=== PATIENT | male | born 1990 | race Caucasian/White ===

== ENCOUNTER 2016-10-01 08:21 | Inpatient (IN) | payer BC, OTHER ==
[~2016-10-01] VITALS: Ht 177.8 cm; Wt 122.5 kg
[2016-10-01] MEDS ORDERED: ACETAMINOPHEN 325 MG TABLET PO PRN (10:30)
[2016-10-01] MEDS ORDERED: DICYCLOMINE HCL 20 MG TABLET PO PRN (10:30)
[2016-10-01] MEDS ORDERED: ONDANSETRON 4 MG/2 ML VIAL IM PRN (10:30)
[2016-10-01] MEDS ORDERED: MIRALAX 17 GM POWD.PACK PO PRN (10:30)
[2016-10-01] MEDS ORDERED: BUPRENORPHINE HCL 2 MG TAB.SUBL SL PRN (10:30)
[2016-10-01] MEDS ORDERED: MAG HYDROX/AL HYDROX/SIMETH 30 ML LIQUID UDC PO PRN (10:30)
[2016-10-01] MEDS ORDERED: diphenhydrAMINE 50 MG CAPSULE PO PRN (10:30)
[2016-10-01] MEDS ORDERED: ONDANSETRON ODT 4 MG TAB.RAPDIS SL PRN (10:30)
[2016-10-01] MEDS ORDERED: MAGNESIUM HYDROXIDE 30 ML LIQUID UDC PO PRN (10:30)
[2016-10-01] MEDS ORDERED: LOPERAMIDE HCL 2 MG CAPSULE PO PRN ×2 (10:30)
[2016-10-01] MEDS ORDERED: HYDROXYZINE PAMOATE 25 MG CAPSULE PO PRN (10:30)
--- NOTE | 2016-10-01 10:30 | NUR ---
Intake assessment Note Pt seen in intake. Pt states that he is being admitted for opiate dependence. Pt VS are: 138/83 HR 104, R 18, T: 99.0, SpO2 100% on RA. Pt is cleared to come to the unit for admission. Pt reports that he has no medical history, no history of seizures, and that he does not take any prescribed medication at home.
[2016-10-01 10:40] VITALS: BP 138/83
--- NOTE | 2016-10-01 10:40 | NUR ---
Admission Note Pt had been admitted for opiate dependence. Pt ambulated on the unit with DISBURSING OFFICER. Pt is a direct admit from home. Pt explained rules/procedures/protocol for the unit. Pt verbalized his understanding. Pt states that he has a PMHx of a cardiac septal defect surgery and rhinoplasty. Denies taking any prescribed medications at home. Pt states that his PCP is Dr Arias. Pt states that this is his first time in detox. Pt skin check completed and noted to have several scabs on his bilateral arms/chest. No open wounds noted. Pt states that he is 5'10'' tall and weighs 270 pounds. Pt VS upon admission are: BP: 138/83, HR 104, T: 99.0, R: 18, SpO2 100% on RA. Pt denies pain at this time. LBM 10/01/16. Pt has a COWS of 22 upon admission, will administer medication upon verification by pharmacy. Pt states that he does not want a pneumococcal vaccine. Consents to HIV testing. Pt states that he uses to following substances: smokes 1 pack of cigarettes a day. Heroin- 1-1.5G via inhalation daily x 1 year, last use 09/30/16- 0.4G Methamphetamine- "1-2 points", states he uses it infrequently for the last 3 months, last use "1 point" on . Roxicodone- 30mg tabs- used 4-6 tabs PO daily for 3 years then switched to heroin a year ago. Pt states that he follows a regular diet at home, has NKA and is placed on full code. Pt has been seen by Dr Villeda, will be starting a subutex taper today at 1300. All needs addressed at this time. Will continue to monitor pt and administer PRN medication when available. .
--- NOTE | 2016-10-01 11:11 | NUR ---
PRN administration Pt has a COWS of 22. Administered PRN subutex per MD orders, Dr Villeda notified. Will continue to monitor pt. +
[2016-10-01] MEDS: METHOCARBAMOL 750 MG TABLET PO PRN (11:40)
[2016-10-01] MEDS: CLONIDINE HCL 0.1 MG TABLET PO PRN (11:40)
--- NOTE | 2016-10-01 11:41 | NUR ---
PRN administration/reassessment Pt has a COWS of 11, pt c/o anxiety and muscle aches. Administered PRN robaxin and clonidine. Will continue to monitor pt.
[2016-10-01 12:00] VITALS: BP 107/70
[2016-10-01 12:03] LABS: *AMPHETAMINE, URINE POSITIVE (NEGATIVE); *BARBITURATE, URINE NEGATIVE (NEGATIVE); *CANNABINOID, URINE NEGATIVE (NEGATIVE); *COCCAINE, URINE NEGATIVE (NEGATIVE); *OPIATE, URINE POSITIVE (NEGATIVE); *PHENCYCLIDINE SCREEN,URINE NEGATIVE (NEGATIVE)
--- NOTE | 2016-10-01 12:41 | NUR ---
Reassessment Pt states that his anxiety level is down and that his muscle aches are gone. Pt states "I feel much more comfortable now, but still nervous about being here". Will continue to monitor pt. All other needs addressed at this time.
[2016-10-01] MEDS: BUPRENORPHINE HCL 2 MG TAB.SUBL SL SCH ×3 (13:01→21:52)
[2016-10-01 15:04] LABS: BASOPHILS # (AUTO) 0.1 K/uL (0.0-8.0); EOSINOPHILS % (AUTO) 0.3 % (0.0-7.0); HEMATOCRIT 47.3 % (40-50); HEMOGLOBIN 16.1 G/DL (14.0-18.0); LYMPHOCYTES # (AUTO) 1.2 K/UL (0.8-4.8); LYMPHOCYTES % (AUTO) 11.3 % (20.5-51.5); MEAN CORPUSCULAR HEMOGLOBIN 28.4 UUG (27.0-31.0); MEAN CORPUSCULAR HGB CONC 34 g/dL (32.0-37.0); MEAN CORPUSCULAR VOLUME 83.3 FL (82.0-92.0); MONOCYTES # (AUTO) 0.6 K/UL (0.1-1.30); MONOCYTES % (AUTO) 5.4 % (0.0-11.0); NEUTROPHILS # (AUTO) 8.9 K/UL (1.8-8.9); PLATELET COUNT (AUTO) 255 K/UL (150-450); RED BLOOD CELL COUNT(AUTO) 5.67 MIL/UL (4.7-6.1); WHITE BLOOD COUNT (AUTO) 10.8 K/UL (4.0-11.2)
[2016-10-01 15:09] LABS: ETHANOL < 3 MG/DL (0-0)
[2016-10-01 15:13] LABS: ALANINE AMINOTRANSFERASE 32 U/L (16-63); ALKALINE PHOSPHATASE 80 U/L (50-136); ASPARTATE AMINOTRANSFERASE 19 U/L (15-37); BILIRUBIN,TOTAL 0.6 mg/dL (0.2-1.0); CARBON DIOXIDE 28 mmol/L (21-32); CHLORIDE 102 mmol/L (98-107); CREATININE 0.9 mg/dL (0.6-1.3); GLUCOSE 103 mg/dL (74-106); POTASSIUM 3.9 mmol/L (3.5-5.1); TOTAL PROTEIN, SERUM 7.6 g/dL (6.4-8.2); UREA NITROGEN, BLOOD 9 mg/dL (7-18)
[2016-10-01 17:14] VITALS: BP 119/73
--- NOTE | 2016-10-01 19:13 | NUR ---
End of shift note Pt was admitted for opiate dependence. Pt has NKA, is on a regular diet and is a full code. Upon admission pt had a COWS of 22, after administration of PRN clonidine, robaxin and subutex pt had a COWS of 10. Most recently pt has a COWS of 2. Pt started his 5 day sutubex taper and is tolerating it very well. Pt drank 2759 ml of fluids during the shift, ate 100% of lunch, and 100% of dinner. Pt had 4 voids and no BMs during the shift. Pt has no complaints at this time. All needs addressed. Will endorse SBAR to oncoming shift.
--- NOTE | 2016-10-01 19:45 | NUR ---
START OF SHIFT NOTE Pt is a 25 y/o male admitted for Heroin and Meth dependence and use. Pt has NKA but reported a PMH of cardiac septal defect and rhino plasty. Per day shift nurse pt was placed on a 5 day Subutex taper (day 1) and is tolerating medication well, with no s/e or a/r reported. Pt received Robaxin 750 mg PO PRN and Clonidine 0.1 mg PO PRN during the day shift. Last COW: 3 (1600). At this time pt is asleep in bed with no signs of discomfort/distress noted but skin is slightly moist. Full assessment deferred until client is awake. All safety measures in place; side rails up x 2, bed locked and low position, and call light within reach. Will continue to monitor.
[2016-10-01 20:00] VITALS: BP 145/73
[2016-10-01] MEDS: IBUPROFEN 600 MG TABLET PO PRN (22:02)
--- NOTE | 2016-10-01 22:02 | NUR ---
MOTRIN PRN ADMINISTRATION Pt reported lower back discomfort 5/10. Motrin 600 mg PO PRN was given. Pt verbalized an understanding. All safety measures in place. Will monitor for effectiveness.
--- NOTE | 2016-10-01 23:02 | NUR ---
NICK PRN REASSESSMENT Pt stated " My back is feeling better. It's probably a 2/10 now. I can go down to have a cigarette though, so it's not bad." PRN effective. Will continue to monitor.
[2016-10-02] VITALS: BP 128/86
--- NOTE | 2016-10-02 04:00 | NUR ---
VITALS REFUSED/ COW DEFERRED Pt refused to have vitals taken at this time. Pt was encouraged x 3 with risks and benefits explained but the pt still declined. COW assessment deferred until the pt is awake. All safety measures in place. Will continue to monitor. Addendum: 10/02/16 at 0604 by OLIVIER STERLING LVN Amended: Links added.
--- NOTE | 2016-10-02 06:53 | NUR ---
END OF SHIFT NOTE Pt is a 25 y/o male admitted for Heroin and Meth dependence and use. Pt has NKA but reported a PMH of cardiac septal defect and rhino plasty. Pt continues on a 5 day Subutex taper (day 2) and is tolerating medication well, with no s/e or a/r reported. Pt received Trazodone 50 mg PO x 1 during the shift. Last COW: 3 (0000). Pt slept for total of 7 hours. All safety measures in place; side rails up x 2, bed locked and low position, and call light within reach. Will endorse to the oncoming nurse.
--- NOTE | 2016-10-02 07:36 | NUR ---
BEGINNING OF SHIFT Patient endorsement report received from mold shifter nurse, all pertinent information discussed. Patient is a 25 year old male, NKA. Admitted on 10/01/2016. Admitting Dx: opiate dependence. currently with ongoing 5 day subutex taper as ordered and is currently to begin day 2 of taper. Patient slept for 8 hours as per mold shifter. Also with last cow score of: 3. During mold shifter patient received PRN : Motrin as ordered, medication effective as per mold shifter. Educated regarding plan of care for the day and medication regimen with good verbal understanding. Safety measures in place. call light kept with in reach, fall and seizure precautions observed. Will continue to monitor closely.
[2016-10-02 08:09] LABS: HEPATITIS B SURFACE AG Negative (Negative)
[2016-10-02 08:35] VITALS: BP 124/77
[2016-10-02] MEDS: MULTIVITAMINS,THERAPEUTIC TABLET PO SCH (08:42)
[2016-10-02] MEDS: BUPRENORPHINE HCL 2 MG TAB.SUBL SL SCH ×3 (08:42→20:30)
[2016-10-02] MEDS ORDERED: TUBERCULIN,PURIF.PROT.DERIV. 5 TU/0.1 ML TEST ID ONE (09:00)
[2016-10-02] MEDS ORDERED: KETOROLAC TROMETHAMINE 30 MG INJ IM PRN (10:45)
[2016-10-02] MEDS: METHOCARBAMOL 750 MG TABLET PO PRN (10:46)
--- NOTE | 2016-10-02 10:46 | NUR ---
PRN TORADOL/ROBAXIN Patient c/o back pain 10/24, provided with non pharmacological interventions with no relief, as per Dr. ewing patient to receive Toradol and Robaxin as ordered, will monitor effectiveness of medication
--- NOTE | 2016-10-02 11:46 | NUR ---
ROBAXIN/TORADOL REASSESSMENT Patient reports medication effective one hour post administration, current pain level is 0/10, will continue to monitor.
[2016-10-02 13:44] VITALS: BP 119/61
[2016-10-02 16:05] VITALS: BP 105/67
--- NOTE | 2016-10-02 19:09 | NUR ---
END OF SHIFT Patient alert and oriented x4, vital signs stable during shift. Patient compliant with therapeutic plan of care. Patient continues on 5 day Subutex taper as ordered, well tolerated no ASE noted, patient currently on day 2 of taper. 0900 assessment patient presented with:c/o chills, dilated pupils, moist eyes, tremors that can be felt but not seen, mild anxiety and mild bone and joint aches with cow score of: 6; 1300 assessment patient presented with: c/o chills, dilated pupils, moist eyes, tremors that can be felt but not seen, mild anxiety with cow score of: 5; 1700 assessment patient presented with: c/o chills, dilated pupils, moist eyes, tremors that can be felt but not seen, mild anxiety with cow score of: 5. During shift administered Robaxin and Toradol as ordered, medications were effective one hour post administration. Patient compliant with plan of care during shift. Safety measures in place. call light kept with in reach. Patient endorsement report given to lieutenant shift supervisor nurse, all pertinent information discussed. Patient encouraged to attend group/therapy sessions to learn new coping skills to prevent relapse, noted attending and participating, denies SI/HI. safety measures in place. will continue to monitor.
[2016-10-02 20:00] VITALS: BP 131/95
--- NOTE | 2016-10-02 20:20 | NUR ---
START OF SHIFT NOTE Pt is a 25 y/o male admitted for Heroin and Meth dependence and use. Pt has NKA but reported a PMH of cardiac septal defect and rhino plasty. Per day shift nurse pt continues on a 5 day Subutex taper (day 2) and is tolerating medication well, with no s/e or a/r reported. Pt received Robaxin 750 mg PO PRN and Toradol 30 mg IM PRN during the day shift. Last COW: 5 (1600). At this time pt is watching television. Pt reported having chills and hot flashes. Pt's skin is moist. Slight tremors felt. ROBBIE noted. Pt stated " I got Toradol earlier today, and that really helped with my back pain. I'm okay for now, but I might need another shot before bed." Pt was encouraged to notify staff of any changes in condition or of any concerns. Pt verbalized an understanding. All safety measures in place; side rails up x 2, bed locked and low position, and call light within reach. Will continue to monitor.
--- NOTE | 2016-10-03 | NUR ---
VITALS REFUSED/ COW DEFERRED Pt refused to have vitals taken at this time. Pt was encouraged x 3 with risks and benefits explained, but the pt still declined. COW assessment deferred until pt is awake. All safety measures in place. Will continue to monitor. Addendum: 10/03/16 at 0248 by OLIVIER STERLING LVN Amended: Links added.
--- NOTE | 2016-10-03 04:00 | NUR ---
VITALS REFUSED/ COW DEFERRED Pt refused to have vitals taken at this time. Pt was encouraged x 3 with risks and benefits explained, but the pt still declined. COW assessment deferred until pt is awake. Will continue to monitor. Addendum: 10/03/16 at 0637 by OLIVIER STERLING LVN Amended: Links added.
[2016-10-03] MEDS: IBUPROFEN 600 MG TABLET PO PRN (04:43)
[2016-10-03] MEDS: METHOCARBAMOL 750 MG TABLET PO PRN (04:43)
--- NOTE | 2016-10-03 04:50 | NUR ---
MOTRIN AND ROBAXIN PRN ADMINISTRATION Pt reported back pain 09/23. Motrin 600 mg PO PRN and Robaxin 750 mg PO PRN given. Will monitor for effectiveness.
--- NOTE | 2016-10-03 05:50 | NUR ---
MOTRIN AND ROBAXIN PRN REASSESSMENT Pt reported his back feeling better. PRNS effective. Will continue to monitor.
--- NOTE | 2016-10-03 07:35 | NUR ---
END OF SHIFT NOTE Pt is a 25 y/o male admitted for Heroin and Meth dependence and use. Pt has NKA but reported a PMH of cardiac septal defect and rhino plasty. Pt continues on a 5 day Subutex taper (day 3) and is tolerating medication well, with no s/e or a/r reported. Pt received Motrin 600 mg PO PRN and Robaxin 750 mg PO PRN during the shift. Last COW: 8 (1999). Pt slept for total of 7 hours. All safety measures in place; side rails up x 2, bed locked and low position, and call light within reach. Will endorse to the oncoming nurse.
--- NOTE | 2016-10-03 07:54 | NUR ---
BEGINNING OF SHIFT Patient endorsement report received from manufacturing supervisor 2nd shift nurse, all pertinent information discussed. Patient is a 25 year old male, NKA. Admitted on 10/01/2016. Admitting Dx: opiate dependence. currently with ongoing 5 day subutex taper as ordered and is currently to begin day 3 of taper. Patient slept for 7 hours as per manufacturing supervisor 2nd shift. Also with last cow score of: 8. During manufacturing supervisor 2nd shift patient received PRN : Motrin and robaxin as ordered, medication effective as per manufacturing supervisor 2nd shift. Educated regarding plan of care for the day and medication regimen with good verbal understanding. Safety measures in place. call light kept with in reach, fall and seizure precautions observed. Will continue to monitor closely.
[2016-10-03 08:08] VITALS: BP 118/76
[2016-10-03] MEDS ORDERED: BUPRENORPHINE HCL 2 MG TAB.SUBL SL SCH (09:00)
[2016-10-03] MEDS: MULTIVITAMINS,THERAPEUTIC TABLET PO SCH (09:02)
[2016-10-03] MEDS ORDERED: BACLOFEN 10 MG TABLET PO ONE (10:45)
[2016-10-03] MEDS: LIDOCAINE 5% PATCH TD SCH (11:10)
[2016-10-03 13:54] VITALS: BP 115/75
[2016-10-03] MEDS: BUPRENORPHINE HCL 2 MG TAB.SUBL SL SCH ×2 (14:22→20:40)
[2016-10-03] MEDS: BACLOFEN 10 MG TABLET PO SCH ×2 (14:22→20:40)
[2016-10-03 17:44] VITALS: BP 132/92
--- NOTE | 2016-10-03 19:10 | NUR ---
END OF SHIFT Patient alert and oriented x4, vital signs stable during shift. Patient compliant with therapeutic plan of care. Patient continues on 5 day Subutex taper as ordered, well tolerated no ASE noted, patient currently on day 3 of taper. 0900 assessment patient presented with heart rate of 90, dilated pupils, mild bone and joint aches, moist eyes, tremors that can be felt but not seen, mild anxiety with cow score of: 7; 1300 assessment patient presented with: heart rate of 92, c/o chills, mild bone and joint aches, tremors that can be felt but not seen, and mild anxiety with cow score of: 5; 1700 assessment patient presented with: heart rate of 100, c/o chills, mild bone and joint aches, tremors that can be felt but not seen, and mild anxiety with cow score of: 5. No PRN medications were administered during shift. Patient compliant with plan of care during shift. Safety measures in place. call light kept with in reach. Patient endorsement report given to fast food shift lead nurse, all pertinent information discussed. Patient encouraged to attend group/therapy sessions to learn new coping skills to prevent relapse, noted attending and participating, denies SI/HI. safety measures in place. will continue to monitor.
--- NOTE | 2016-10-03 19:50 | NUR ---
START OF SHIFT Received report from day shift nurse. Pt is lying in bed resting. He is a 25 yo male admitted to [facility] on 10/01 for opiate dependence. He is A&O x4 and ambulatory. NKA, full code status, and on a regular diet. He has a PMH of cardiac septal defect and rhinoplasty. On admission he reported using heroin 1-1.5grams per day and methamphetamine infrequently. He started a 5 day subutex taper on 10/01. Pt presents with moist skin, body aches, and anxiety. Taper due tonight. Lidocaine patch in place on lower back per orders. Safety measures in place. Bed is down with call light in reach.
[2016-10-03 20:00] VITALS: BP 132/82
[2016-10-04] VITALS: BP 123/87
--- NOTE | 2016-10-04 04:00 | NUR ---
0400 Vitals refused. COWS deferred. Pt refused to be woken for 0400 vitals. He is lying in bed resting with eyes closed. Respirations even and unlabored. COWS ordered Q4HWA.
--- NOTE | 2016-10-04 07:21 | NUR ---
END OF SHIFT Report provided to day shift nurse. Pt is lying in bed resting. He is a 25 yo male admitted [facility]/01 for opiate dependence. He is A&O. Pt has NKA, is full code status, and on a regular diet. He has a PMH of cardiac septal defect and rhinoplasty. Upon admission he admitted to using heroin 1-1.5grams per day and methamphetamine infrequently. 5 day subutex taper was started on 10/01. Taper is working well to manage withdrawal symptoms. No PRN medications administered. Last COWS was 3. He drank 900mL and slept for 9 hours. Safety measures in place.
--- NOTE | 2016-10-04 07:41 | NUR ---
BEGINNING OF SHIFT Patient endorsement report received from film processing shift supervisor nurse, all pertinent information discussed. Patient is a 25 year old male, NKA. Admitted on 10/01/2016. Admitting Dx: opiate dependence. currently with ongoing subutex taper as ordered and is currently to begin day 3 of taper. Patient slept for 9 hours as per film processing shift supervisor. Also with last cow score of: 3. During film processing shift supervisor patient received no PRNs, medication effective as per film processing shift supervisor. Educated regarding plan of care for the day and medication regimen with good verbal understanding. Safety measures in place. call light kept with in reach, fall and seizure precautions observed. Will continue to monitor closely.
[2016-10-04 08:16] VITALS: BP 112/85
[2016-10-04] MEDS: BACLOFEN 10 MG TABLET PO SCH ×3 (08:43→20:18)
[2016-10-04] MEDS: LIDOCAINE 5% PATCH TD SCH (08:43)
[2016-10-04] MEDS: MULTIVITAMINS,THERAPEUTIC TABLET PO SCH (08:43)
[2016-10-04] MEDS ORDERED: BUPRENORPHINE HCL 2 MG TAB.SUBL SL SCH ×2 (09:00)
[2016-10-04] MEDS ORDERED: IBUP-1955 PO (11:26)
[2016-10-04] MEDS ORDERED: METH-406 PO (11:26)
[2016-10-04] MEDS ORDERED: DIPH50CA37 PO (11:26)
[2016-10-04] MEDS ORDERED: DICY20TA28 PO (11:26)
[2016-10-04] MEDS ORDERED: HYDR-3895 PO (11:26)
[2016-10-04 13:34] VITALS: BP 120/84
[2016-10-04 17:43] VITALS: BP 120/84
[2016-10-04 18:22] LABS: *AMPHETAMINE, URINE NEGATIVE (NEGATIVE); *BARBITURATE, URINE NEGATIVE (NEGATIVE); *CANNABINOID, URINE NEGATIVE (NEGATIVE); *COCCAINE, URINE NEGATIVE (NEGATIVE); *OPIATE, URINE NEGATIVE (NEGATIVE); *PHENCYCLIDINE SCREEN,URINE NEGATIVE (NEGATIVE)
--- NOTE | 2016-10-04 18:39 | NUR ---
END OF SHIFT Patient alert and oriented x4, vital signs stable during shift. Patient compliant with therapeutic plan of care. Patient completed Subutex taper as ordered, well tolerated no ASE noted, Patient is scheduled for discharge tomorrow, noted self motivated towards sobriety. 0900 assessment patient presented with heart rate of 104, mild bone and joint aches, tremors that can be felt but not seen, and anxiety with cow score of: 6; 1300 assessment patient presented with : heart rate of 95, tremors that can be felt but not seen, and mild anxiety with cow score of: 3; 1700 assessment patient presented with: heart rate of 94, tremors that can be felt but not seen, and mild anxiety with cow score of: 3. No PRN medications were administered during shift. Patient compliant with plan of care during shift. Safety measures in place. call light kept with in reach. Patient endorsement report given to warehouse worker 2nd shift nurse, all pertinent information discussed. Patient encouraged to attend group/therapy sessions to learn new coping skills to prevent relapse, noted attending and participating, denies SI/HI. safety measures in place. will continue to monitor.
--- NOTE | 2016-10-04 19:50 | NUR ---
START OF SHIFT Received report from day shift nurse. Pt is lying in bed resting. He is a 25 yo male admitted to [facility] on 10/01 for opiate dependence. He is A&O x4 and ambulatory. NKA, full code status, and on a regular diet. He has a PMH of cardiac septal defect and rhinoplasty. Upon admission he admitted to using heroin 1-1.5grams per day and methamphetamine infrequently. He started a 5 day subutex taper on 10/01 and it was completed today. His skin is warm and moist. He denies any other s/s of withdrawal. Pt is scheduled for discharge tomorrow. Safety measures in place. Bed is down with call light in reach.
[2016-10-04 20:00] VITALS: BP 126/102
[2016-10-04] MEDS: CLONIDINE HCL 0.1 MG TABLET PO PRN (20:18)
--- NOTE | 2016-10-04 20:20 | NUR ---
PRN Clonidine Pt reports feeling mildly anxious. B/P 126/102 and HR 102. PRN Clonidine administered.
--- NOTE | 2016-10-04 21:30 | NUR ---
PRN Clonidine reassessment PRN Clonidine effective. Pt reports feeling relaxed in bed. B/P 107/75 and HR 85.
--- NOTE | 2016-10-05 | NUR ---
0000 Vitals refused/COWS deferred Pt refused to be woken for 0000 vitals. He is lying in bed resting with eyes closed. Respirations even and unlabored. COWS ordered Q4HWA. Safety measures in place.
--- NOTE | 2016-10-05 04:00 | NUR ---
0400 Vitals refused/COWS deferred Pt refused to be woken for 0400 vitals. He is lying in bed resting with eyes closed. Respirations even and unlabored. COWS ordered Q4HWA. Safety measures in place.
--- NOTE | 2016-10-05 07:25 | NUR ---
END OF SHIFT Report provided to day shift nurse. Pt is lying in bed resting. He is a 25 yo male admitted to [facility] on 10/01 for opiate dependence. He is A&O and ambulatory. NKA, full code status, and on a regular diet. He has a PMH of cardiac septal defect and rhinoplasty. Upon admission he admitted to using heroin 1-1.5grams per day and methamphetamine infrequently. Subutex taper was completed yesterday and he is scheduled for discharge today. PRN Clonidine administered. Minimal other s/s of withdrawal per patient. Last COWS was 2. He drank 1280mL and slept for 9 hours. Safety measures in place. Bed is down with call light in reach.
--- NOTE | 2016-10-05 07:48 | NUR ---
START OF SHIFT Rcvd endorsement from ongoing nurse, 25 y/o admitted for heroin withdrawal, he completed 5 day Subutex taper, tolerated well with no ASE. He is schedule for discharge today to [facility]. Last COWS 2 @ 1999. PRN Clonidine for increased BP, noted effective. Client slept 9 hrs. Client is sitting on the couch, he presents with anxious mood, he reports feeling a little anxious, since he will be going to a new place, he denies any N/V/D, he denies any SI/HI. Skin warm to touch. RR 16 even, non-labored. No history of withdrawal induced seizures. Client is on universal precautions. NKA, full code, regular diet. Call light within reach. Side rails x 2 up. Will continue to monitor.
[2016-10-05] MEDS: LIDOCAINE 5% PATCH TD SCH (08:25)
[2016-10-05] MEDS: BACLOFEN 10 MG TABLET PO SCH (08:25)
[2016-10-05] MEDS: MULTIVITAMINS,THERAPEUTIC TABLET PO SCH (08:25)
[2016-10-05 08:30] VITALS: BP 128/90
[2016-10-05 08:49] VITALS: BP 128/90
[2016-10-05] MEDS: CLONIDINE HCL 0.1 MG TABLET PO PRN (08:49)
--- NOTE | 2016-10-05 08:49 | NUR ---
PRN Clonidine 0.1mg, Vistaril 50mg Client presents with anxious mood, MB increased HR 118, above medications administered PO. Will continue to monitor.
[2016-10-05] MEDS ORDERED: BUPRENORPHINE HCL 2 MG TAB.SUBL SL SCH (09:00)
--- NOTE | 2016-10-05 09:35 | NUR ---
Discharge note & Reassessment PRN Clonidine 0.1mg, Vistaril 50mg Client was admitted for opiate withdrawal. Client last COWS of 3. Clonidine and Vistaril effective, client appears calm, HR 99. Client LBM was 10/05/16. Client denies any SI/HI. Client verbalized his understanding of the discharge instructions. Client has no complaints at this time. Client discharge instructions, prescriptions, and all belongings returned to pt. All needs addressed at this time. Client's ID band removed, he ambulated off of unit, client left facility via [facility] for [facility]
== END 2016-10-05 09:35 | disposition other institution (70) | DRG 895 ==
LOC: SRC 09:50
PROVIDERS: ADMIT Internal Medicine; ATTEND Internal Medicine
PROC: HZ2ZZZZ Detoxification Services for Substance Abuse Treatment (ICD-10-PCS; principal; 2016-10-01)
PROC: HZ41ZZZ Group Counseling for Substance Abuse Treatment, Behavioral (ICD-10-PCS; 2016-10-03)
PROC: HZ31ZZZ Individual Counseling for Substance Abuse Treatment, Behavioral (ICD-10-PCS; 2016-10-04)
DX: F11.23 Opioid dependence with withdrawal (principal); F15.10 Other stimulant abuse, uncomplicated; F17.210 Nicotine dependence, cigarettes, uncomplicated
CPT/HCPCS: 36415; 70030-TC; 80307; 80324; 80361; 83735; 85025; 86580; 86592; 86705; 86803; 87340; 87806; A4663; G0480; J1885